=== PATIENT | female | born 1960 | race Caucasian/White ===

== ENCOUNTER → 2018-09-04 15:45 | Outpatient (CLI) | payer OTHER, SELFPAY ==
--- NOTE | 2018-09-04 16:00 | MRI_ITS ---
STUDY: MRI LEFT MIDFOOT REASON FOR EXAM: Pain across the dorsal aspect of the left foot for 2.5 months, no specific injury. TECHNIQUE: Standardized fat and water weighted pulse sequences were obtained in all 3 orthogonal planes. COMPARISON: None. FINDINGS: Normal tibiotalar and posterior subtalar articulations. Normal talonavicular articulation. Normal calcaneocuboid articulation. There is mild arthrosis at the medial aspect of the navicular-cuneiform articulations with mild chondral thinning and a small subchondral cyst of the distal navicular (inversion recovery sagittal image 7). Normal intercuneiform articulations. 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 Normal first tarsometatarsal articulation. Normal Lisfranc ligament. Normal second and third tarsometatarsal articulations. Normal cuboid fourth and cuboid fifth tarsometatarsal articulation. Normal first through fifth metatarsi. Normal tibialis anterior tendon. Normal extensor hallucis longus tendon. Normal extensor digitorum longus tendons. Normal peroneus longus tendon and distal insertion. Normal peroneus brevis tendon and distal insertion. Normal intrinsic muscles of the foot. Normal plantar fascia. Normal subcutis adipose space. 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 Electronically Signed: Blayne Willis MD at 15:44 EST Tel , Service support ,
== END ==
PROVIDERS: Family Provider Family Medicine; PCP Family Medicine; Referring Provider Podiatrist; Visit Provider Podiatrist
DX: S96.112D Strain of muscle and tendon of long extensor muscle of toe at ankle and foot level, left foot, subsequent encounter (principal); S93.692D Other sprain of left foot, subsequent encounter; M79.672 Pain in left foot; X58.XXXD Exposure to other specified factors, subsequent encounter
CPT/HCPCS: 73718

== ENCOUNTER 2019-01-30 16:30 | Outpatient (RCR) | payer OTHER, SELFPAY ==
--- NOTE | 2018-10-09 18:14 | HP.PTEVAL ---
Patient's Visit Information DYLAN BALDWIN is a 58 year old F referred to Physical Therapy by Drake Andrade DPM with a diagnosis of L ankle arthirits and sprain. Date of Evaluation: 10/09/18 Physical Therapist: Terrence Whyte DPT, OCS, CSCS - Visit Plan Frequency: 2-3x /Week Duration: 4-6 Weeks Plan: 2-3x/week for 4-6... 1. STM L foot focussing medial and rollout gastroc, stretch gastroc and foot traction with PROM inv/ev. 2. monitor effects of transverse arch support placed in shoe today and may need custom orthotics. 3. TENS and MH to medial foot. 4 ankle strength and foot intrinsic strength. - Subjective Findings: Medial foot pain since [place] massage stretching May and hurt ever since. 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 Pain is constant and worse as day goes along. It is5-6/10 most days, hurts bad on steps and first thing in am. On feet alld ay every day. Has 3 acres to take care of at home. Activities are normal except cannot run, rowing machine hurts foot. Was in walking boot for 2 months, and did not help adn threw back off. Gave a pain cream lately which does help a little when I put it on - Pain L foot pain medial Pain Intensity (Out of 10): 5 Pain Intensity Range: 2, 7 - Objective Walks with slight L antalgia but I, has mild pes planus adn flat transverse arch. compression to metatarsals medially is very provocative., tender to palpae media first metatarsal. Ankles are tight in gastroc and soleus B at 0 DF, full PF, inv and eversion are painfree and 25 adn 10 B. strength ankle is 4+ without pain in all directions but WB plantarflexion hurts, much better with subtalar neutral and transverse arch support. Can walk on toes with pain, heel walking is painfree. Hip and knee aROM WFL B. - Goals Goal 1:: No tenderness to palpation in L medial foot Goal Time Frame: 4-6 Weeks Goal 2:: Patient feel walking and WB is 75% improved and can get out of bed without pain. Goal Time Frame: 4-6 Weeks Goal 3:: Stand at work without pain greater than 1/10 Goal Time Frame: 4-6 Weeks Goal 4:: I approp HEP to minimize futurre problems. Goal Time Frame: 4-6 Weeks - Rehabilitation Potential Physical Therapy Diagnosis: L ankle metatarsal compression pain. Rehabilitation Potential: Fair - Anticipated Interventions Patient/Client Instruction: Educate patient on: Condition, Plan of Care For the Purpose of:: To decrease pain, To decrease swelling/inflammation, To increase ROM, To improve nutrient delivery to tissue Therapeutic Exercise to Include: Strength training, Flexibilty training, Passive ROM, Active ROM For the Purpose of:: To decrease pain, To decrease swelling/inflammation, To increase ROM Manual Therapy Techniques to Include: Soft tissue mobilization For the Purpose of:: To decrease pain, To improve nutrient delivery to tissue Orthotics: Shoe insert For the Purpose of:: To decrease pain TENS: Yes Thermo therapy (hot pack): Yes For the Purpose of:: To decrease pain Thank you for the opportunity to evaluate your patient. For Medicare and Medicare HMO plans, please review the plan of care and approve it. It will need to be FAXED BACK to us at [phone] for Medicare purposes. For Medicare only, by signing this I certify the plan of care. Please let me know if there are questions or concerns regarding this plan of care. Physician Signature: Date:
--- NOTE | 2018-11-06 19:05 | HP.PTREVAL ---
Drake Andrade DPM, It has been my pleasure to treat DYLAN BALDWIN over the last 6 visits for L ankle arthirits and sprain. Please see the progress note below for an update on the physical therapy plan of care! Subjective: Got new tennis shoes. Overall has walked an awful lot in the last week. Does better in tennis shoes. Pain over weekend at 6/10 with excessive WB over the weekend. No f/u with doctor scheduled. Has been sleeping well. Lots of stuff going on at school this time of year. At rest feels good. Activity [place] has not jogged but did use rower at gym. Objective/Function: Still very tender R medial ankle still moderately tender . ROM DF knee straight 5 degrees and knee bent 9 degrees. Strength 4+/5 all motions without pain today. Walks without antalgia btu foot is very flat. Plan Plan: 3x/week for two more weeks. Terrence to check if orthotics are covered adn mold ЕЛЕНА. Otherwise need to do DTR to foot and rollout to gastroc and continue to stretch foot and ankle aggressively. Goals Goal 1:: No tenderness to palpation in L medial foot Goal Time Frame: 4-6 Weeks Goal Progress: Not Progressing Goal 2:: Patient feel walking and WB is 75% improved and can get out of bed without pain. Goal Time Frame: 4-6 Weeks Goal Progress: Goal Met Goal 3:: Stand at work without pain greater than 1/10 Goal Time Frame: 4-6 Weeks Goal Progress: sometimes Goal 4:: I approp HEP to minimize futurre problems. Goal Time Frame: 4-6 Weeks Goal Progress: Goal Met Goal 5:: fit for adn I in use of orthotics to help with foot pain Goal Time Frame: 2-4 Weeks Goal Progress: NEW GOAL Anticipated Interventions Patient/Client Instruction: Educate patient on: Condition, Plan of Care For the Purpose of:: To decrease pain, To decrease swelling/inflammation, To increase ROM, To improve nutrient delivery to tissue Therapeutic Exercise to Include: Strength training, Flexibilty training, Passive ROM, Active ROM For the Purpose of:: To decrease pain, To decrease swelling/inflammation, To increase ROM Manual Therapy Techniques to Include: Soft tissue mobilization For the Purpose of:: To decrease pain, To improve nutrient delivery to tissue Orthotics: Shoe insert For the Purpose of:: To decrease pain TENS: Yes Thermo therapy (hot pack): Yes For the Purpose of:: To decrease pain Please do not hesitate to contact me at [phone] by phone or if you have questions or concerns regarding this new plan of care! Sincerely, Terrence Whyte, DREADT, OCS, CSCS
--- NOTE | 2018-12-24 15:07 | HP.PT.NRP ---
HP - Discharge Summary (1) - Patient Information DYLAN BALDWIN was seen in my office for initial evaluation on 10/09/18. The following Plan of Care was established for this patient: Initial Frequency: 2-3x /Week Initial Duration: 4-6 Weeks - Anticipated Interventions Patient/Client Instruction: Educate patient on: Condition, Plan of Care For the Purpose of:: To decrease pain, To decrease swelling/inflammation, To increase ROM, To improve nutrient delivery to tissue Therapeutic Exercise to Include: Strength training, Flexibilty training, Passive ROM, Active ROM For the Purpose of:: To decrease pain, To decrease swelling/inflammation, To increase ROM Manual Therapy Techniques to Include: Soft tissue mobilization For the Purpose of:: To decrease pain, To improve nutrient delivery to tissue Orthotics: Shoe insert For the Purpose of:: To decrease pain TENS: Yes Thermo therapy (hot pack): Yes For the Purpose of:: To decrease pain This patient was last seen in our office 11/15/18. Pertinent comments regarding their Physical therapy will appear below: Pt seen 8 visits of plan of care but cancelled last number of visits without rescheduling. At this point, it has been over 4 weeks adn i will discontinue due to nonattendance. At this point I will be discontinuing this patient from physical therapy. I would be happy to see this patient again in the future if found appropriate by the physician. Thank you! Terrence Whyte, DPT, OCS, CSCS
--- NOTE | 2019-01-30 16:57 | HP.PTDCSUM ---
HP - PT D/C Summary It has been my pleasure to treat DYLAN BALDWIN under orders from Drake Andrade DPM, for the diagnosis of L ankle arthirits and sprain for a total of 9 visit(s). Discharge Date: 01/30/19 Please see the following information for a summary of their discharge status. - Subjective Subjective: Was doing really well until sudden sharp pain last week. was 85% better than stepped wrong but not unusuallyand got 8/10 pain top L foot. Outside pain is better. Will see foot doctor in a week. Doing exercises until last week btu now rest ice and elevate. - Pain L foot pain medial Pain Intensity (Out of 10): 0 - Overall Improvement % Improvement: 85 - Objective Objective/Function: Good fit and feel to orthotics but pt not pushing off with L foot today due to pain causing antlagia. She has ROM WNL in L ankle but pulling into DF very painful in L lateral forefoot. OVERALL ODD PRESENTATION WITH NEW PAIN. - Goals Goal 1:: No tenderness to palpation in L medial foot Goal Progress: Goal Met Goal 2:: Patient feel walking and WB is 75% improved and can get out of bed without pain. Goal Progress: new pain today Goal 3:: Stand at work without pain greater than 1/10 Goal Progress: was met Goal 4:: I approp HEP to minimize futurre problems. Goal Progress: Goal Met Goal 5:: fit for adn I in use of orthotics to help with foot pain Goal Progress: Goal Met - Plan Plan: D/C, pt to see doctor for new pain in foot. Will try orthotics vended today as tolerated. - D/C Information Discharge Comments: Pt received orthotics today and was doing well until sudden lateral metatarsal pain last week. Will schedule with doctor for this new pain. If there are questions or concerns regarding this patient's physical therapy, please feel free to call me at [phone]. Thank you for the referral of this patient. Sincerely, Terrence Whyte, DPT, OCS, CSCS
== END 2019-01-30 19:00 | disposition home or self-care (01) ==
LOC: PT 16:30
PROVIDERS: Family Provider Family Medicine; PCP Family Medicine; Referring Provider Podiatrist; Visit Provider Podiatrist
DX: S96.112D Strain of muscle and tendon of long extensor muscle of toe at ankle and foot level, left foot, subsequent encounter (principal); S93.692D Other sprain of left foot, subsequent encounter; M19.072 Primary osteoarthritis, left ankle and foot; M79.672 Pain in left foot
CPT/HCPCS: 97110; 97140; 97162; 97530; 97760; 97763

== ENCOUNTER → 2019-08-01 16:30 | Outpatient (CLI) | payer OTHER, SELFPAY ==
[2018-10-23 16:14] VITALS: BMI 29.9
--- NOTE | 2019-08-01 16:32 | BI_ITS ---
MAMMOGRAPHY - BILATERAL SCREENING REASON FOR EXAM: Female, 59 years old. Routine annual screening examination. PERTINENT HISTORY: Non-contributory. TECHNIQUE: Digital bilateral breast dayton (3D mammographic acquisition) in the CC and MLO projections. 2-D mediolateral oblique (MLO) and craniocaudad (CC) views of both breasts were obtained. CAD: Full Field Digital Mammography with Computer Added Detection was performed. COMPARISON: Comparison is made with prior examination dated April 02, 2015. FINDINGS: Breast Composition: The breasts are almost entirely fatty. There are no dominant masses or suspicious calcifications. Benign appearing bilateral axillary lymph nodes. No other significant abnormalities are identified. There has been no significant change since the prior study. BI/SCREEN MAMM (CAD) W/DAYTON BILAT IMPRESSION: Stable bilateral screening mammogram. Yearly follow-up mammogram recommended. (A) ASSESSMENT CATEGORY: BIRADS Category 2: Benign. A letter regarding these results will be sent to the patient by the facility within 30 days. Approximately 10% of breast cancers are not detected by mammography. A normal mammogram should not delay biopsy of a clinically suspicious abnormality. [id number] Electronically Signed: Otoniel Sepulveda, at 12:29 EST , Service support ,
== END ==
PROVIDERS: Family Provider Family Medicine; PCP Family Medicine; Referring Provider Family Medicine; Visit Provider Family Medicine
DX: Z12.31 Encounter for screening mammogram for malignant neoplasm of breast (principal)
CPT/HCPCS: 77063; 77067

== ENCOUNTER → 2020-02-26 07:56 | Outpatient (CLI) | payer OTHER, SELFPAY ==
[2019-10-21 16:01] VITALS: BMI 29.9
--- NOTE | 2020-02-26 08:01 | VDLE_ITS ---
Reason For Study: Chronic venous insufficiency RIGHT LEFT CFV is compressible, spontaneous, phasic, CFV is compressible, spontaneous, phasic, competent and demonstrates normal competent, and demonstrates normal augmentation. augmentation. FV is compressible, spontaneous, phasic, FV is compressible, spontaneous, phasic, competent and demonstrates normal competent and demonstrates normal augmentation. augmentation. POP V is compressible, spontaneous, phasic, POP V is compressible, spontaneous, phasic, competent and demonstrates normal competent and demonstrates normal augmentation. augmentation. T/P Trunk is compressible. T/P Trunk is compressible. PTV is compressible. PTV is compressible. RT PerV is compressible. LT PerV is compressible. SFJ is competent and measures 0.61 x 0.69 cm. SFJ is competent and measures 0.53 x 0.67 cm. GSV proximal thigh measures 0.36 x 0.36 cm. GSV proximal thigh measures 0.47 x 0.44 cm. GSV at knee measures 0.30 x 0.29 cm. GSV at knee measures 0.25 x 0.23 cm. GSV INCOMPETENT throughout for greater than GSV is competent throughout. 0.5 seconds. SSV at junction is INCOMPETENT for greater ASV distal thigh is INCOMPETENT for greater than 0.5 seconds and measures 0.23 x 0.23 cm. than 0.5 seconds and measures 0.31 x 0.33 cm. SSV at junction is competent and measures 0.33 x 0.36 cm. Procedure Exam performed in department. A preliminary report was called and/or faxed to [employer]. Interpretation Summary Deep veins of the lower extremities are bilaterally patent and compressible segmentally. There is no evidence of deep vein thrombosis on either side. Valvular competence appears intact within the proximal deep venous systems bilaterally. The great saphenous veins appear bilaterally patent and compressible segmentally. Sapheno-femoral junctions are bilaterally competent . The right great saphenous vein appears segmentally incompetent. The left great saphenous vein appears segmentally competent. The right small saphenous vein is patent and competent. The left small saphenous vein is patent and incompetent. The right accessory saphenous vein in the distal right thigh is incompetent. Ordering Physician: Lillie Heaton Referring Physician: Lillie Heaton Performed By: Jennie Martines RVT
== END ==
PROVIDERS: PCP Family Medicine; Referring Provider Family Medicine; Visit Provider Family Medicine
DX: I87.2 Venous insufficiency (chronic) (peripheral) (principal); R60.0 Localized edema; R60.9 Edema, unspecified
CPT/HCPCS: 93970

== ENCOUNTER 2020-03-11 06:52 | Day surgery (SDC) | payer OTHER, SELFPAY ==
[2019-10-21 16:01] VITALS: BMI 29.9
--- NOTE | 2019-10-22 09:44 | HP_ITS ---
Intake Vital Signs 10/21/19 BMI 29.9 10/21/19 Height 5 ft 6 in 10/21/19 Weight: 180 lb 10/21/19 BMI 29.0 10/21/19 BP 141/85 H 10/21/19 Blood Pressure Location Rt brachial 10/21/19 Position Sitting 10/21/19 Respiration 18 Intake Visit Reasons: Cscope Consult/ needs 3:30 Appointment Chief Complaint: neck and low back pain Financial Internship Required: No Is patient in pain?: No Allergies Sulfa (Sulfonamide Antibiotics) Allergy (Mild, Verified 10/21/19 16:00) rash Medications dexlansoprazole 60 mg capsule,biphase delayed release 60 mg PO DAILY 10/21/19 [History Confirmed 10/21/19] esomeprazole magnesium 40 mg capsule,delayed release 40 mg PO DAILY #90 cap 10/21/19 [Rx Confirmed 10/21/19] PFSH Medical History Bilateral headaches (Acute) Environmental allergies (Acute) GERD (gastroesophageal reflux disease) (Acute) Surgical History History of cholecystectomy (Acute) History of hysterectomy (Acute) History of tonsillectomy and adenoidectomy (Acute) Family History Grandmother Breast cancer Grandfather Heart disease Father Diabetes Hypertension Other CVA (cerebral vascular accident) Ovarian cancer Social History (Updated 10/22/19 @ 09:[address] Esthela Go MD) Smoking Status: Never smoker alcohol intake: never substance use type: does not use what type of physical activity do you participate in: walking, swimming, aerobics frequency: 3-4 times per week HPI HPI HPI: DYLAN BALDWIN, is a 59 F who presents to the office today for HPI HPI Surgical H&P: Yes HPI: DYLAN BALDWIN, is a 59 F who presents to the office today for diarrhea as well as maroon blood with her stool x3. Patient last had a colonoscopy in 2012 at [facility] patient thinks that she had a polyp at that time. Currently patient states she has had diarrhea for about the last 2 months multiple times a day denies any sick contacts. Prior to this patient states that she used to have a bowel movement about every other day. Patient denies any family history of colon cancer. Patient states about a month ago she did have maroon stool in the toilet about 3 times. She does have a history of hemorrhoids from . Patient also states that she has a history of reflux currently on Dexilant however her insurance denied the coverage so she is gotten [id number] Nexium and is currently taking about 40 mg daily. Patient states her last EGD was about 3 years ago. Patient states her reflux symptoms were controlled better with the Dexilant but they are pretty well controlled with the Nexium generic [id number]. Exam Const General: cooperative, comfortable, no acute distress Resp Effort & Inspection: normal respiratory effort Cardio Rate: regular rate GI Inspection: non-distended Palpation: soft, no guarding, nontender Assessment & Plan Problems 1. Diarrhea R19.7 2. Gastroesophageal reflux disease K21.9 Plan We will get patient's previous endoscopy records. We will plan to do colonoscopy with random biopsies due to the diarrhea. We will also send in a prescription for the Nexium 40 mg p.o. daily see if her insurance will cover this as they would no longer cover the Dexilant per the patient. I have discussed the above with the patient. I have offered the patient colonoscopy for evaluation. I have explained the risks/benefits of the procedure and described the procedure. I have discussed the risks with the patient, including but not limited to: infection, bleeding, perforation of the GI tract requiring emergency surgery, inability to complete the procedure, injury to any internal organs, complications of anesthesia, etc. - the patient understands and agrees to proceed. I have answered all the patient's questions to the patient's satisfaction and the patient has no further questions. The patient has been given instructions for the colon cleansing preparation. One day of clears, MiraLAX Dulcolax split prep. Esthela Go M.D. Pager: [phone] [facility] [address] [place] [address], [address] [place] [id number] Office: [phone] Orders Orders: Colonoscopy 10/21/19 R19.7 Medications New: esomeprazole magnesium (Nexium) 40 mg PO DAILY 90 caps 2RF Plan Detail Goals Decrease pain and spasm Improve ROM Barriers Work Follow Up We will schedule colonoscopy Coding Level of Care Code Off vis,new,level 3 Diagnoses Diarrhea R19.7 Gastroesophageal reflux disease K21.9 10/22/19 0944 <Electronically signed by Esthela Alfaro am, MD> Date _ Esthela Go MD
[2020-03-11 07:11] VITALS: BP 138/84; PULSE 80; RESP 18; TEMP 36.2; O2SAT 100; BMI 35.6
[2020-03-11] MEDS: Lactated Ringers 1,000 ML 100 ML IV (07:25)
--- NOTE | 2020-03-11 07:46 | H&P.OPEN ---
History of Present Illness Date of Admission: 03/11/20 The patient is a 60 year old F presents for colonoscopy patient was seen several months ago in office is having some occasional maroon stool as well as some diarrhea. Patient states this has kind of improved only has occasional diarrhea and has not had any maroon stool since. Patient's last colonoscopy was in 2012 states she thinks she had a polyp at that time. Patient denies any family history of colon cancer. Patient states she does have some hemorrhoids from previously. Patient is currently on medication for reflux her last scope was about 3 years ago, reflux symptoms are controlled with medication Past Medical/Surgical History - Planned Operation Planned Operative Procedure/s: cscope Date of Operative Procedure: 03/11/20 Permit Signed: No S.O.S: No Is This Patient Having a Total Joint: No - Previous Hospitalizations/Surgeries HX Hospitalizations: No HX of Surgeries: tonsillectomy at age 40. gallbladder. partial hysterectomy. cscope Any Problems With Anesthesia: No You/Your Family Experience Fever (Hyperthermia) With Anes: No Cholinesterase deficiency: No - Cardiovascular Hx Chest Pain within Last 2 months: No Hx of Irregular Heartbeat and/or Afib: No Hx Heart Attack: No Hx Congestive Heart Failure: No Hx Rheumatic Fever: No Hx Hypertension: No Hx Internal Defibrillator: No Hx Pacemaker: No Hx Cardiac Catheterization: No Hx Cardiac Surgery/Stents/Etc.: No Hx Stress Test: Yes - over 5 yrs ago HX Edema: Yes - feet in the past/to see vein specialist Hx Pain in Legs when Walking/Leg Cramps: No - Respiratory Chronic Cough: No HX of Shortness of Breath: No Hoarseness: No Hx Chronic Obstructive Pulmonary Disease (COPD): No Hx Asthma: No Hx Emphysema: No Hx Sleep Apnea: No Hx Oxygen Use at Home: No Hx Respiratory Tract Infection/Cold (presently): No Do You Snore Loudly (louder than talking or can be heard): No Do You Often Feel Tired/ Fatigued/ Sleepy Dring Daytime?: No Has Anyone Observed You Stop Breathing During Sleep?: No Result (for STOP score): Negative Hx Smoking: No Smoking Status: Never smoker - Gastrointestinal Hx Gastroesophageal Reflux: Yes Controlled With Meds: Yes Hx Gastrointestinal Disorders: No Hx Gastrointestinal Bleed: No Hx Ulcer: Yes - in the past Hx Hiatal Hernia: No Difficulty Chewing/Swallowing: No Recent Onset of Swallowing Problems: No Special diet followed at home: No Hx Unplanned Weight Loss of 20#: No HX Unplanned Weight Gain of 20#: No - Neurological Hx Seizures: No HX Syncope/Blackout Spells/Unconsciousness: No Hx CVA/Stroke: No Hx Transient Ischemic Attacks (TIA): No Hx Multiple Sclerosis: No Hx Parkinson's Disease: No Hx Head/Neck Injury: No Hx Headaches: Yes - occ Hx Back Injury/Pain: Yes - occ back pain Recent Onset of Speech Difficulty: No Restless Legs: No Does patient have nerve stimulator: No Patient instructed to have device shut off: No Rep notified?: No - Blood Disorder Hx Leukemia: No Bleeding Tendencies: Yes - bruises easily Hx Deep Vein Thrombosis: No Hx High Cholesterol: No Blood Transmitted Disease: No Hx Hepatitis: No Hx Cirrhosis: No Hx Anemia: No Hx Blood Disorders: No - Reproduction : No Is Patient Lactating: No Hx Hysterectomy: Yes Hx Tubal Ligation: No Are You Post Menopause: Yes - Genitourinary Hx Renal Disease: No - Musculoskeletal Hx Arthritis: Yes Hx Rheumatoid Arthritis: No Hx Gout: No Recent Onset of an Orthopedic Problem: No - Endocrine Hx Diabetes: No Thyroid Disease: No Hx Steroid Therapy: No - Psycho/Social Hx Substance Use: No Hx Alcohol Use: Yes - rarely Hx Anxiety: No Hx Depression: No Mental Illness: No Hx Dementia: No - Miscellaneous Hx Cancer: No Recent Exposure to Contagious Disease: No Active MRSA: No Hx of C-Diff: No Any Loose Teeth: No - partial Allergies Sulfa (Sulfonamide Antibiotics) Allergy (Mild, Verified 03/05/20 14:57) rash - Discharge Is Pt Admitted From a Senior Living, or a Long Term: No After D/C, Where Do you Plan to Go: Return Home - Physical Exam Vitals/I&O's: Vital Signs Temp Pulse Resp BP Pulse Ox 97.1 F L 80 18 138/84 H 100 03/11/20 07:11 03/11/20 07:11 03/11/20 07:11 03/11/20 07:11 03/11/20 07:11 Oxygen Delivery Method Room Air Weight: 221 lb 3.2 oz Body Mass Index (BMI) 35.6 General: Alert, Oriented x3, Cooperative, No apparent distress HEENT: Atraumatic Lungs: Normal air movement Cardiovascular: Regular rate Abdomen: Soft, Non Tender, Non-Distended Extremities: No clubbing, No cyanosis, No edema Neurological: Cranial nerves II-XII grossly intact Psych/Mental Status: Normal Affect Current Medications Lactated Ringer's () 1,000 mls @ 100 mls/hr IV .Q10H SIMIN Last Admin: 03/11/20 07:25 Dose: 100 mls/hr Documented by: Assessment/Plan All Active Problems (Last Reviewed 10/21/19 @ 15:59 by Krystyna Kessler) Segmental and somatic dysfunction of thoracic region (Acute) Segmental and somatic dysfunction of lumbar region (Acute) Segmental and somatic dysfunction of cervical region (Acute) 60-year-old female presents for history of colon Polyps Procedure Criteria Procedure Type: Elective COVID Risk Discussion: The surgeon/proceduralist and patient have discussed in detail the risk of exposure to and/or potential harm posed by the COVID-19 virus with having a surgery/procedure at this time versus the risk of delaying the surgery/procedure. It is not possible to know either the risk of delaying the surgery or procedure or chance of getting an infection with perfect accuracy, but a joint decision was made between the patient and the surgeon/proceduralist to proceed at this time with the scheduled surgery/procedure as indicated on the consent form. Surgery Risks - Colonoscopy I discussed with the patient the risks of the procedure: Yes Risks Include but are not Limited To: Risks include but are not limited to: Bleeding, perforation requiring further surgery, inability to complete colonoscopy requiring barium enema. Patient and her no further questions this time.
[2020-03-11 08:24] VITALS: BP 111/78; BP 138/84; PULSE 92; RESP 18; TEMP 36.6; O2SAT 99
[2020-03-11 08:30] VITALS: BP 123/75; BP 138/84; PULSE 82; RESP 17; O2SAT 94
--- NOTE | 2020-03-11 08:32 | OP.COLON_ITS ---
Patient Name: Crys Bonilla Procedure Date: 03/11/2020 7:25 AM Date of : 1960 Age: 60 Procedure: Colonoscopy Indications: High risk colon cancer surveillance: Personal history of colonic polyps Providers: Esthela Go MD Referring MD: Lillie Heaton Medicines: Monitored Anesthesia Care Patient Profile: This is a 60 year old female. Last Colonoscopy: 2012. Complications: No immediate complications. Procedure: Pre-Anesthesia Assessment: - Prior to the procedure, a History and Physical was performed, and patient medications and allergies were reviewed. The patient's tolerance of previous anesthesia was also reviewed. The risks and benefits of the procedure and the sedation options and risks were discussed with the patient. All questions were answered, and informed consent was obtained. Prior Anticoagulants: The patient has taken no previous anticoagulant or antiplatelet agents. ASA Grade Assessment: Per anesthesia. After reviewing the risks and benefits, the patient was deemed in satisfactory condition to undergo the procedure. After I obtained informed consent, the scope was passed under direct vision. Throughout the procedure, the patient's blood pressure, pulse, and oxygen saturations were monitored continuously. The Colonoscope was introduced through the anus and advanced to the cecum, identified by the appendiceal orifice, ileocecal valve and palpation. The colonoscopy was performed without difficulty. The patient tolerated the procedure well. The quality of the bowel preparation was good. Scope In: 8:05:09 AM Scope Withdrawal Time 0 hours 7 minutes 48 seconds Scope Out: 8:20:45 AM Total Procedure Duration Time 0 hours 15 minutes 36 seconds Findings: Hemorrhoids were found on perianal exam. A few small-mouthed diverticula were found in the sigmoid colon. Non-bleeding internal hemorrhoids were found during retroflexion. The hemorrhoids were Grade I (internal hemorrhoids that do not prolapse). The exam was otherwise without abnormality. Impression: - Hemorrhoids found on perianal exam. - Diverticulosis in the sigmoid colon. - Non-bleeding internal hemorrhoids. - The examination was otherwise normal. - No specimens collected. Recommendation: - Discharge patient to home. - High fiber diet. - Continue present medications. - Repeat colonoscopy in 10 years for screening purposes. Procedure Code(s): --- Professional --- G0105, PT, Colorectal cancer screening; colonoscopy on individual at high risk Diagnosis Code(s): --- Professional --- Z86.010, Personal history of colonic polyps K64.0, First degree hemorrhoids K57.30, Diverticulosis of large intestine without perforation or abscess without bleeding CPT copyright 2017 [employer]. All rights reserved. The codes documented in this report are preliminary and upon buffer automatic review may be revised to meet current compliance requirements. MD Esthela Nixon MD 03/11/2020 8:32:20 AM This report has been signed electronically. Number of Addenda: 0 Note Initiated On: 03/11/2020 7:25 AM
--- NOTE | 2020-03-11 08:33 | OP.CCLET_ITS ---
03/11/2020 Lillie Heaton [address] [place] [address] Re : Colonoscopy procedure for Crys Bonilla Dear Dr. Heaton This procedure was performed on Wednesday, March 11, 2020. My impressions and recommendations are as follows: Impressions : - Hemorrhoids found on perianal exam. - Diverticulosis in the sigmoid colon. - Non-bleeding internal hemorrhoids. - The examination was otherwise normal. - No specimens collected. Recommendations : - Discharge patient to home. - High fiber diet. - Continue present medications. - Repeat colonoscopy in 10 years for screening purposes. My findings are described in the full procedure note, which is enclosed. If I can be of further assistance, please feel free to contact me at Doctor phone number(s): , Work: . Sincerely, MD Esthela Nixon MD 03/11/2020 8:32:20 AM This report has been signed electronically.
[2020-03-11 08:35] VITALS: BP 118/71; BP 138/84; PULSE 79; RESP 17; O2SAT 96
[2020-03-11 08:41] VITALS: BP 123/72; BP 138/84; PULSE 74; RESP 16; TEMP 36.4; O2SAT 96
[2020-03-11 09:00] VITALS: BP 138/84
== END 2020-03-11 09:05 | disposition home or self-care (01) ==
LOC: EN 06:53 → AC 06:54
PROVIDERS: Anesthesiology; PCP Family Medicine; Referring Provider Family Medicine; Visit Provider Surgery
PROC: 0DJD8ZZ Inspection of Lower Intestinal Tract, Via Natural or Artificial Opening Endoscopic (ICD-10-PCS; CPT 45378; principal; 2020-03-11 07:55)
DX: Z12.11 Encounter for screening for malignant neoplasm of colon (principal); Z11.59 Encounter for screening for other viral diseases; K57.30 Diverticulosis of large intestine without perforation or abscess without bleeding; K64.0 First degree hemorrhoids; K64.8 Other hemorrhoids; K21.9 Gastro-esophageal reflux disease without esophagitis; Z79.899 Other long term (current) drug therapy; Z78.0 Asymptomatic menopausal state; Z86.010 Personal history of colon polyps
CPT/HCPCS: 45378; 87635; G2023; J7120; J2405; U0003

== ENCOUNTER 2020-10-15 08:14 | Outpatient (RCR) | payer OTHER, SELFPAY | END 2020-10-15 23:59 | LOC: IMMUN 08:14 | PROVIDERS: PCP Family Medicine; Visit Provider Family Medicine | DX: Z23 Encounter for immunization (principal) | CPT/HCPCS: 0011A; 0012A ==

== ENCOUNTER 2021-04-08 15:00 | Outpatient (RCR) | payer OTHER, SELFPAY ==
--- NOTE | 2021-03-25 10:47 | HP.PTEVAL_ITS ---
Patient's Visit Information DYLAN BALDWIN is a 61 year old F referred to Physical Therapy by BUCKY WHITE with a diagnosis of LEFT SHOULDER ROTATOR CUFF TENDONITIS. Date of Evaluation: 03/25/21 Physical Therapist: Meño Roach, PT, Cert MDT, OCS - Visit Plan Frequency: 1-2x /Week Duration: 4-6 Weeks Plan: PT INTERVENTIONS RTC /SCAPULAR STRENGTHENING,POSTURAL EX'S AND MODALTIES /MANULA THERAPY - Subjective This 61 y/o female presents to physical therapy with tendonitis left RTC. Patient fell on step landed on extended arm and hit head on January 13 . Symptoms where not getting better thus had to see DR ~ 1 month ago. Patient did x-rays - fracture. No Meds. Located global refers to deltoid lateral. Symptoms affects sleeping . Aggravating factors lifting OH ,lifting, affects ADL 'S and housework tasks . Alleviating factors rest. C/O paresthesia /tingling in arm. Patient symptoms affects ability to work and housework tasks. Patient symptoms affects QOL. Patient goals to golf and golf. SOCIAL: . VOCATION: Teacher - Pain Left Shoulder Pain Intensity (Out of 10): 5 Pain Intensity Range: 10 - Objective POSTURE: mild forward posture. PALAPTION: tender AC. NEURO: c/o paresthesia/tingling arm. AROM: shoulder flexion 140 degrees, abduction 140 degrees, ER 90 degrees, IR T12. MMT: infraspinatus 4-/5,supraspinatus 4-/5 ,mild pain, subscapularis 4/5,deltoid 4-/5 mild pain, 3+/5 middle traps. CAPSULAR : WFL. SCAPULAR -HUMERAL FUNCTION: 1:1 - Special Tests L Shoulder External Rotation Lag Test - RC Tear: Negative L Shoulder Supine Impingement Test - RC Tear: Negative L Shoulder Lift Off Test - Subscapular Tear: Negative L Shoulder Drop Sign - IS Test: Negative L Shoulder Empty Can - SS: Negative L Shoulder Neer - Impingement: Positive L Shoulder Vela Dylan - Impingement: Positive L Shoulder Shrug Sign - OA/Adhesive Capsulitis: Negative - Goals Goal 1:: I with HEP Goal Time Frame: 4-6 Weeks Goal 2:: Patient improve posture ADLS Goal Time Frame: 4-6 Weeks Goal 3:: Patient decrease shoulder pain by 60% or> to improve function and ADLS' Goal Time Frame: 4-6 Weeks Goal 4:: Patient improve shoulder ROM symmetrical left = to right to improve function. Goal Time Frame: 4-6 Weeks Goal 5:: Patient to increase strength RTC and deltoid 4/5 to improve function with ADLS' and housework tasks Goal Time Frame: 4-6 Weeks Goal 6:: Patient to improve shoulder quick dash 5 points or > to imrove function Goal Time Frame: 4-6 Weeks - Rehabilitation Potential Physical Therapy Diagnosis: This patient has left shoulder tendinosis with pain decrease ROM, weakness impair function with OH activities and self hygiene thus benefit From skilled PT Rehabilitation Potential: Good - Anticipated Interventions Patient/Client Instruction: Educate patient on: Condition, Plan of Care For the Purpose of:: To decrease pain, To increase ROM, To improve muscle per formance and motor function, To improve ability to perform ADL's, To improve performance and independence with ADL's, To improve ability of physical actions for home/community/work/leisure, To improve health of tissue, To decrease soft tissue restriction, To reduce risk of recurrence, To improve health and function, To improve ability to perform tasks related to life management, To improve tolerance to ADL's Therapeutic Exercise to Include: Strength training, Postural training, Passive ROM, Scapular Strength/Stabilization Comment: RTC STRENGTHNEING For the Purpose of:: To decrease pain, To increase ROM, To improve muscle performance and motor function, To improve ability to perform ADL's, To increase tolerance to activity/condition/position, To improve ability of physical actions for home/community/work/leisure, To increase flexibility/ROM, To improve safety, To improve health and function, To improve ability to perform tasks related to life management TENS: Yes IF ES: Yes Cryotherapy (ice pack, ice massage): Yes Thermo therapy (hot pack): Yes Ultrasound (thermal/non thermal): Yes For the Purpose of:: To decrease pain, To decrease swelling/inflammation, To improve nutrient delivery to tissue, To improve muscle performance and motor function, To improve health of tissue, To decrease soft tissue restriction Thank you for the opportunity to evaluate your patient. For Medicare and Medicare HMO plans, please review the plan of care and approve it. It will need to be FAXED BACK to us at [phone] for Medicare purposes. For Medicare only, by signing this I certify the plan of care. Please let me know if there are questions or concerns regarding this plan of care. Physician Signature: Date:
--- NOTE | 2021-09-06 12:14 | HP.PT.NRP ---
DYLAN BALDWIN was seen in my office for initial evaluation on 03/25/21. The following Plan of Care was established for this patient: Initial Frequency: 1-2x /Week Initial Duration: 4-6 Weeks Patient/Client Instruction: Educate patient on: Condition, Plan of Care For the Purpose of:: To decrease pain, To increase ROM, To improve muscle performance and motor function, To improve ability to perform ADL's, To improve performance and independence with ADL's, To improve ability of physical actions for home/community/work/leisure, To improve health of tissue, To decrease soft tissue restriction, To reduce risk of recurrence, To improve health and function, To improve ability to perform tasks related to life management, To improve tolerance to ADL's Therapeutic Exercise to Include: Strength training, Postural training, Passive ROM, Scapular Strength/Stabilization For the Purpose of:: To decrease pain, To increase ROM, To improve muscle performance and motor function, To improve ability to perform ADL's, To increase tolerance to activity/condition/position, To improve ability of physical actions for home/community/work/leisure, To increase flexibility/ROM, To improve safety, To improve health and function, To improve ability to perform tasks related to life management TENS: Yes IF ES: Yes Cryotherapy (ice pack, ice massage): Yes Thermo therapy (hot pack): Yes Ultrasound (thermal/non thermal): Yes For the Purpose of:: To decrease pain, To decrease swelling/inflammation, To improve nutrient delivery to tissue, To improve muscle performance and motor function, To improve health of tissue, To decrease soft tissue restriction This patient was last seen in our office . Pertinent comments regarding their Physical therapy will appear below: This patient seen for PT for shoulder tendonitis for MANUAL THERAPY ,ROM and strength RTC/ SCAPULAR ..doing better thus is d/c At this point I will be discontinuing this patient from physical therapy. I would be happy to see this patient again in the future if found appropriate by the physician. Thank you! Meño Roach, PT, Cert MDT, OCS Balance/Gait/Functional tests - Balance/Special Test Scores Quick DASH Score: 2.1431
== END 2021-04-08 19:00 | disposition home or self-care (01) ==
LOC: PT 15:00
PROVIDERS: PCP Family Medicine
DX: M75.82 Other shoulder lesions, left shoulder (principal)
CPT/HCPCS: 97014; 97110; 97162; G0283

== ENCOUNTER → 2021-07-28 15:14 | Outpatient (CLI) | payer OTHER, SELFPAY ==
--- NOTE | 2021-07-28 15:17 | BI_ITS ---
MAMMOGRAPHY - BILATERAL SCREENING REASON FOR EXAM: Female, 61 years old. Routine annual screening examination. PERTINENT HISTORY: Non-contributory. TECHNIQUE: Digital bilateral breast dayton (3D mammographic acquisition) in the CC and MLO projections. 2-D mediolateral oblique (MLO) and craniocaudad (CC) views of both breasts were obtained. CAD: Full Field Digital Mammography with Computer Added Detection was performed. COMPARISON: Comparison is made with prior study dated 08/01/2019 FINDINGS: Breast Composition: The breasts are almost entirely fatty. There are no dominant masses or suspicious calcifications. Stable small benign appearing bilateral axillary lymph nodes. No other significant abnormalities are identified. There has been no significant change since the prior study. BI/SCRN MAMM (CAD)W/DAYTON BILAT IMPRESSION: Stable bilateral screening mammogram. Yearly follow-up mammogram recommended. (A) ASSESSMENT CATEGORY: BIRADS Category 2: Benign. A letter regarding these results will be sent to the patient by the facility within 30 days. Approximately 10% of breast cancers are not detected by mammography. A normal mammogram should not delay biopsy of a clinically suspicious abnormality. [id number] Electronically Signed: Otoniel Sepulveda MD at 15:49 EST , Service support ,
== END ==
PROVIDERS: PCP Family Medicine; Visit Provider Family Medicine
DX: Z12.31 Encounter for screening mammogram for malignant neoplasm of breast (principal)
CPT/HCPCS: 77063; 77067

== ENCOUNTER → 2022-08-18 | Outpatient (CLI) | payer OTHER, SELFPAY ==
--- NOTE | 2022-08-18 12:19 | BI_ITS ---
MAMMOGRAPHY - BILATERAL SCREENING REASON FOR EXAM: Female, 62 years old. Routine annual screening examination. PERTINENT HISTORY: Non-contributory. TECHNIQUE: Digital bilateral breast day[place] (3D mammographic acquisition) in the CC and MLO projections. 2-D mediolateral oblique (MLO) and craniocaudad (CC) views of both breasts were obtained. CAD: Full Field Digital Mammography with Computer Added Detection was performed. COMPARISON: Mammogram from 07/28/2021, 08/01/2019. FINDINGS: Breast Composition: The breasts are almost entirely fatty. There are no dominant masses or suspicious calcifications. No other significant abnormalities are identified. There has been no significant change since the prior study. BI/SCRN MAMM (CAD)W/DAYTON BILAT IMPRESSION: Stable bilateral screening mammogram. Yearly follow-up mammogram recommended. (A) ASSESSMENT CATEGORY: BIRADS Category 1: Negative. A letter regarding these results will be sent to the patient by the facility within 30 days. Approximately 10% of breast cancers are not detected by mammography. A normal mammogram should not delay biopsy of a clinically suspicious abnormality. Electronically Signed: Hardeep Kent, at 8:09 EST ,
== END | disposition home or self-care (01) ==
LOC: OPBI 12:16
PROVIDERS: PCP Family Medicine; Visit Provider Family Medicine
DX: Z12.31 Encounter for screening mammogram for malignant neoplasm of breast (principal)
CPT/HCPCS: 77063; 77067

== ENCOUNTER 2023-01-30 14:19 | Emergency (ER) | payer OTHER, SELFPAY ==
[2023-01-30 14:20] VITALS: BP 185/102; PULSE 87; RESP 16; TEMP 36.7; O2SAT 100; BMI 30.4
--- NOTE | 2023-01-30 14:23 | RAD_ITS ---
STUDY: X-RAY - RIGHT FOOT CLINICAL: Female, 62 years old. Fall, pain TECHNIQUE: 3 view(s) of the foot. COMPARISON: None. FINDINGS: There is a plantar calcaneal spur. Normal visualized subtalar, talonavicular, calcaneocuboid, tarsal and tarsometatarsal articulations. Normal metatarsi. Normal metatarsophalangeal joint of the great toe. Normal tibial and fibular sesamoid bones. Normal interphalangeal joint of the great toe. Normal phalanges of the great toe. Normal second through fifth metatarsophalangeal joints. Normal interphalangeal joints and phalanges of the lesser toes. The soft tissue structures are unremarkable. RAD/Foot min 3 Views IMPRESSION: Small plantar spur. Electronically Signed: Otoniel Sepulveda MD at 14:51 EDT ,
--- NOTE | 2023-01-30 14:28 | RAD_ITS ---
STUDY: X-RAY - RIGHT ANKLE REASON FOR EXAM: Female, 62 years old. Fall, pain TECHNIQUE: 3 view(s) of the ankle. COMPARISON: None. FINDINGS: Normal visualized distal tibia and fibula. Normal medial and lateral malleoli. Normal tibiotalar articulation and ankle mortise. Small plantar spur. The visualized subtalar, talonavicular, calcaneocuboid and tarsal articulations are normal. The soft tissue structures are unremarkable. RAD/Ankle min 3 Views IMPRESSION: Normal x-ray examination of the ankle. Electronically Signed: Otoniel Sepulveda MD at 14:51 EDT ,
--- NOTE | 2023-01-30 15:15 | EX.ED.DYSGE1 ---
HPI History of Present Illness Chief Complaint: Lower Extremity Injury Narrative Narrative: Patient presents with right ankle pain after an inversion mechanism yesterday she was wearing flip-flops and fell while raining. No head injury neck pain back pain or any other extremity injury her pain is in her ankle and proximal dorsum of the foot. [facility] Medical History (Updated 01/30/23 @ 15:[address] Anthony Rodriguez MD) Bilateral headaches Environmental allergies GERD (gastroesophageal reflux disease) Home Medications Cholecalciferol (Vitamin D3) [Vitamin D3] 5,000 unit PO DAILY 03/05/20 [History Last Taken Unknown] biotin 10,000 mcg capsule 10,000 mcg PO DAILY 03/05/20 [History Last Taken Unknown] calcium carbonate 600 mg calcium (1,500 mg) tablet 1,200 mg PO DAILY 03/05/20 [History Last Taken Unknown] esomeprazole magnesium 40 mg capsule,delayed release See Rx Instructions .Route .COMPLEX #90 caps 09/30/21 [Rx Last Taken Unknown] Allergy/AdvReac Type Severity Reaction Status Date / Time Sulfa (Sulfonamide Allergy Mild rash Verified 03/05/20 14:57 Antibiotics) Family History Grandmother Breast cancer Grandfather Heart disease Father Diabetes Hypertension Other CVA (cerebral vascular accident) Ovarian cancer Surgical History History of cholecystectomy History of hysterectomy History of tonsillectomy and adenoidectomy Social History Smoking Status: Never smoker alcohol intake: never substance use type: does not use what type of physical activity do you participate in: walking, swimming and aerobics frequency: 3-4 times per week ROS ROS ED ROS Narrative Past medical history: Reviewed, unremarkable Medications: Reviewed Social history: Noncontributory Review of systems: Musculoskeletal: Right ankle pain Skin: No abrasions or lacerations Neurological: No weakness or paresthesias Hematologic: No easy bleeding or easy bruising EXAM Physical Exam Narrative Exam Narrative: Physical exam General: Patient does not appear in significant distress . Head: Normocephalic, Atraumatic Neck: No C-spine tenderness Cardiovascular: Normal distal pulses Back: Nontender, Normal Inspection. Extremities: Right ankle shows lateral swelling and tenderness over the proximal dorsum of the foot. No laxity on stressors. No step-offs. No lacerations. No proximal fibular tenderness. Skin: No abrasions, no lacerations Neurological: Normal strength and sensation Const Vital Signs: 01/30/23 14:20 Temperature 98.0 F Temperature Source Temporal Pulse Rate 87 Respiratory Rate 16 Blood Pressure 185/102 H Blood Pressure Mean 129 Pulse Ox 100 Oxygen Delivery Method Room Air MDM MDM MDM Narrative Medical decision making narrative: X-ray of the foot and x-ray of the ankle read by me as no fracture Patient sustained a mechanical fall with ankle pain with negative x-rays. Patient does not meet criteria for knee x-ray at this time or tib-fib pain since these are negative for pain. This was a mechanical fall therefore I am not worried about blood work or any other reasons to cause it. She appears well. She has been using a walker at home and prefers to not have crutches. I will give her an Aircast. I talked to her who is still in the room who saw her fall and giving some of the history and he is okay with the plan. She can take [id number] NSAIDs as needed. Radiography Diagnostic Testing: Clinical Impression(s) from Imaging Studies Foot X-Ray 01/30/23 14:23 IMPRESSION: Small plantar spur. Electronically Signed: Otoniel Sepulveda MD at 14:51 EDT , Ankle X-Ray 01/30/23 14:28 IMPRESSION: Normal x-ray examination of the ankle. Electronically Signed: Otoniel Sepulveda MD at 14:51 EDT , Discharge Plan Triage Chief Complaint: Lower Extremity Injury ED Provider: Anthony Rodriguez Dx/Rx/DC Orders Clinical Impression: Fall, Ankle sprain, Contusion of foot Instructions: Treating Ankle Sprains, Ankle Inversion (Strength) Prescriptions: No Action calcium carbonate 600 MG tablet 1,200 mg PO DAILY biotin 10,000 MCG capsule 10,000 mcg PO DAILY Cholecalciferol (Vitamin D3) [Vitamin D3] 5,000 UNIT capsule 5,000 unit PO DAILY esomeprazole magnesium 40 mg capsule,delayed release(DR/EC) See Rx Instructions .ROUTE .COMPLEX Qty: 90 2RF Dose Instruction: TAKE 1 CAPSULE DAILY Rx Instructions: TAKE 1 CAPSULE DAILY Primary Care Provider: Lillie Heaton Referrals: Lillie Heaton DO [Primary Care Provider] - 3-5 Days Disposition Disposition: Home, Self Care
== END 2023-01-30 15:50 | disposition home or self-care (01) ==
LOC: ED 15:25
PROVIDERS: Emergency Provider Emergency Medicine; PCP Family Medicine; Visit Provider Emergency Medicine
DX: S93.401A Sprain of unspecified ligament of right ankle, initial encounter (principal); S90.31XA Contusion of right foot, initial encounter; X50.1XXA Overexertion from prolonged static or awkward postures, initial encounter
CPT/HCPCS: 73610; 73630; 99283

== ENCOUNTER → 2023-03-21 | Outpatient (CLI) | payer OTHER, SELFPAY ==
[2023-03-21 09:54] LABS: Absolute Lymphocyte Count 1.66 X10^3/uL (0.83-4.51); Absolute Neutrophil Count 3.6 X10^3/uL (2.0-7.7); Basophil# 0.02 X10^3/uL; Basophil% 0.3 % (0-1); Eosinophil# 0.08 X10^3/uL; Eosinophils% 1.3 % (0-5); Hematocrit 46.2 % (37-47); Hemoglobin 15.4 g/dL (12.0-15.0); Lymphocyte # 1.66 X10^3/ul (0.83-4.51); Lymphocyte % 27.8 % (19-41); Mean Corp Hgb Conc 33.3 g/dL (32-36); Mean Corpuscular Hgb 30.6 pg (27.0-32.0); Mean Corpuscular Volume 91.7 fL (81-99); Mean Platelet Vol. 11.6 fl (6.2-12.0); Monocyte# 0.57 X10^3/uL; Monocyte% 9.5 % (0-10); NRBC Flagged by Analyzer 0 % (0-5); Neutrophil # 3.62 X10^3/uL (2.7-7.7); Neutrophil % 60.8 % (47-70); Platelet Count 195 K/mm3 (150-450); RBC Distribution Width SD 43.9 fl (35.1-43.9); Red Blood Count 5.04 M/mm3 (4.2-5.4)
[2023-03-21 10:44] LABS: ALB/GLOB Ratio 1.1 RATIO (0.9-2.4); AST(SGOT) 31 U/L (15-37); Alanine Aminotransfer ALT/SGPT 53 U/L (13-56); Albumin, Serum 3.8 g/dL (3.2-5.0); Alkaline Phosphatase 91 U/L (45-117); Anion Gap 5 (5-15); BUN 11 mg/dL (7-18); BUN/Creat Ratio 12.8 RATIO (10-20); Calcium,Total 8.8 mg/dL (8.5-10.1); Chloride 108 mmol/L (98-107); Cholesterol 154 mg/dL (200); Creatinine, Serum 0.86 mg/dL (0.55-1.02); EST Glomerular Filtration Rate 71 mL/min (>60); Est Glom Filt Rate - Afr Amer 86 mL/min (>60); Free T3 2.6 pg/mL (2.18-3.98); Globulin 3.4 g/dL (2.2-4.2); Glucose 89 mg/dL (74-106); High Density Lipoprotein 54 mg/dL; Potassium 3.9 mmol/L (3.5-5.1); Protein, Total 7.2 g/dL (6.4-8.2); Sodium Level 139 mmol/L (136-145); T4 Free Direct 1.02 ng/dL (0.76-1.46); Thyroid Stim Hormone (TSH) 2.69 uIU/mL (0.358-3.74); Triglycerides 68 mg/dL; Very Low Density Lipoprotein 14 mg/dL (5-40)
== END | disposition home or self-care (01) ==
PROVIDERS: PCP Family Medicine; Referring Provider Family Medicine; Visit Provider Family Medicine
DX: R53.83 Other fatigue (principal); Z51.81 Encounter for therapeutic drug level monitoring; Z13.220 Encounter for screening for lipoid disorders
CPT/HCPCS: 36415; 80053; 80061; 84439; 84443; 84481; 85025

== ENCOUNTER → 2024-05-17 | Outpatient (CLI) | payer OTHER, SELFPAY ==
--- NOTE | 2024-05-17 13:33 | BI_ITS ---
MAMMOGRAPHY - BILATERAL SCREENING REASON FOR EXAM: Female, 64 years old. Routine annual screening examination. PERTINENT HISTORY: Non-contributory. TECHNIQUE: Digital bilateral breast [place] (3D mammographic acquisition) in the CC and MLO projections. 2-D mediolateral oblique (MLO) and craniocaudad (CC) views of both breasts were obtained. CAD: Full Field Digital Mammography with Computer Added Detection was performed. COMPARISON: Comparison is made with prior study dated August 18, 2022 and July 28, 2021. FINDINGS: Breast Composition: The breasts are almost entirely fatty. There are no dominant masses or suspicious calcifications. Stable small benign-appearing bilateral axillary lymph nodes. No other significant abnormalities are identified. There has been no significant change since the prior study. BI/SCRN MAMM (CAD)W/[place] BILAT IMPRESSION: Stable bilateral screening mammogram. Yearly follow-up mammogram recommended. (A) ASSESSMENT CATEGORY: BIRADS Category 2: Benign. A letter regarding these results will be sent to the patient by the facility within 30 days. Approximately 10% of breast cancers are not detected by mammography. A normal mammogram should not delay biopsy of a clinically suspicious abnormality. [id number] Electronically Signed: Otoniel Sepulveda MD at 15:53 EDT ,
== END | disposition home or self-care (01) ==
LOC: OPBI 13:31
PROVIDERS: PCP Family Medicine; Referring Provider Family Medicine; Visit Provider Family Medicine
DX: Z12.31 Encounter for screening mammogram for malignant neoplasm of breast (principal)
CPT/HCPCS: 77063; 77067